=== PATIENT | female | born 1970 | race Caucasian/White ===

== ENCOUNTER → 2017-07-26 | Outpatient (CLI) | payer BC ==
[2017-07-26 16:16] LABS: Basophils % (A) 1 %; Eosinophils # (A) 0.1 k/uL (0-0.7); Eosinophils % (A) 1 %; HCT 40.6 % (34.0-46.0); HGB 13.1 gm/dL (11.4-16.0); Lymphocytes # (A) 2.3 k/uL (1.0-4.8); Lymphocytes % (A) 29 %; MCH 29.2 pg (25.0-35.0); MCHC 32.4 g/dL (31.0-37.0); MCV 90.3 fL (80.0-100.0); Mean Platelet Volume 7.7; Monocytes # (A) 0.5 k/uL (0-1.0); Monocytes % (A) 6 %; Neutrophils # (A) 4.8 k/uL (1.3-7.7); Neutrophils % (A) 62 %; Platelet Count 317 k/uL (150-450); RDW 13.5 % (11.5-15.5); WBC 7.8 k/uL (3.8-10.6)
== END | disposition home or self-care (01) ==
LOC: LABPAT 15:02
PROVIDERS: ATTEND Obstetrics & Gynecology
DX: Z01.812 Encounter for preprocedural laboratory examination (principal); N92.0 Excessive and frequent menstruation with regular cycle; N94.6 Dysmenorrhea, unspecified
CPT/HCPCS: 36415; 85025

== ENCOUNTER 2017-08-01 05:35 | Day surgery (SDC) | payer BC ==
[2017-07-27 10:22] VITALS: BMI 31.0
[~2017-08-01 05:35] MED LIST: DEXAMETHASONE SOD PHOSPHATE 10 MG/ML 1 ML VIAL IV ONE; LACTATED RINGERS 1,000 ML IV SCH; MIDAZOLAM 2 MG/2 ML VIAL IV PRN; ONDANSETRON 4 MG/2 ML VIAL IVP ONE; Pre Op ABX Message 1 EACH MISC MISCELLANE ONE; SCOPOLAMINE 1.5MG/72HR PATCH TRANSDERM ONE; fentaNYL (PF) 50 MCG/ML 2 ML AMP IV PRN
[2017-08-01] MEDS ORDERED: KETOROLAC 30 MG/ML 1 ML VIAL ONE (06:56)
[2017-08-01] MEDS ORDERED: PROPOFOL 10 MG/ML 20 ML VIAL IV ONE (06:56)
[2017-08-01] MEDS ORDERED: fentaNYL (PF) 50 MCG/ML 2 ML AMP ONE (06:56)
[2017-08-01] MEDS ORDERED: LIDOCAINE 1% INJ 10MG/ML (20 ML MDV) ONE (06:56)
[2017-08-01] MEDS ORDERED: MIDAZOLAM 2 MG/2 ML VIAL ONE (06:56)
--- NOTE | 2017-08-01 07:18 | P.OP ---
Date of Procedure: 08/01/17 Preoperative Diagnosis: Dysmenorrhea, menorrhagia Postoperative Diagnosis: Same Procedure(s) Performed: Hysteroscopy, NovaSure ablation Anesthesia: GETA Surgeon: Latonya Bobby Organic Search Lead #1: Stated None Estimated Blood Loss (ml): 3 IV fluids (ml): 200 Urine output (ml): 75 Pathology: none sent Condition: stable Disposition: PACU Description of Procedure: Patient is brought to the operating suite and placed in the dorsal lithotomy position. The cervix, vagina, perineum and periurethral areas are prepped and draped in the usual sterile fashion after general anesthetic is administered without difficulty. The appropriate timeout is performed to assure proper patient and procedural identification, urine hCG is negative. Examination under anesthesia reveals an anteverted uterus, multiparous cervix, grade 2 uterine prolapse, negative adnexa bilaterally. The bladder is drained for approximately 75 mL of clear yellow urine. Weighted speculum was placed into the vagina and the anterior lip of the cervix is grasped with a double-tooth tenaculum. Uterus sounds to a depth of 10.5 cm. The cervix is gently and systematically dilated using Hanks dilators. Hysteroscope was introduced and fluid is pushed into the cavity to distend the toussaint. The cavity is noted to contain a fair amount of proliferative-type appearing tissue, no obvious polyps fibroids or defects. Hysteroscope was removed. NovaSure wand is placed and seated. A uterine width of 4.3 cm, length of 6.5 cm is calibrated on the machine. The machine is properly enabled. For 63 seconds and a power of 154 W the procedure is carried out. When it is completed, the wand is reduced and removed. Hysteroscope was once again placed and the cavity is noted to be uniformly blanched. All sponge needle and enhancement counts are correct at the end of this procedure. Patient is brought back to recovery room in very good condition with stable vital signs including blood pressure of 115/71, pulse 67. Toradol is given prior to leaving the operative suite. Patient will follow-up with me in the office in 2 weeks.
[2017-08-01 07:40] VITALS: TEMP 97.3
[2017-08-01 07:41] VITALS: RESP 16
[2017-08-01 08:26] VITALS: BP 126/85; PULSE 74
== END 2017-08-01 08:55 | disposition home or self-care (01) ==
LOC: OR 05:35
PROVIDERS: ATTEND Obstetrics & Gynecology
DX: N94.6 Dysmenorrhea, unspecified (principal); N92.0 Excessive and frequent menstruation with regular cycle; N81.2 Incomplete uterovaginal prolapse
CPT/HCPCS: 81025; 58563; J2250; J1100; J2405; J2001; J3010; J1885; J2704

== ENCOUNTER → 2017-09-07 | Outpatient (CLI) | payer BC ==
--- NOTE | 2017-09-11 08:33 | MM ---
Reason for exam: screening (asymptomatic). Last mammogram was performed 2 years and 1 month ago. History: Family history of breast cancer in maternal aunt. Took hormonal contraceptives for 6 years. Physical Findings: A clinical breast exam by your physician is recommended on an annual basis and results should be correlated with mammographic findings. MG 3D Screening Mammo W/Cad Bilateral CC and MLO view(s) were taken. Prior study comparison: August 06, 2015, right breast MG 3d diag mammo w/cad RT. January 13, 2015, right breast MG 3d work up w/cad RT. The breast tissue is heterogeneously dense. This may lower the sensitivity of mammography. No significant changes when compared with prior studies. ASSESSMENT: Benign, BI-RAD 2 RECOMMENDATION: Routine screening mammogram of both breasts in 1 year.
== END | disposition home or self-care (01) ==
LOC: RADMAMWWP 11:00
PROVIDERS: ATTEND Obstetrics & Gynecology
DX: Z12.31 Encounter for screening mammogram for malignant neoplasm of breast (principal)
CPT/HCPCS: 77063; 77067

== ENCOUNTER → 2019-08-29 | Outpatient (CLI) | payer BC ==
--- NOTE | 2019-08-30 09:28 | MM ---
Reason for exam: screening (asymptomatic). Last mammogram was performed 2 years ago. History: Family history of breast cancer in maternal aunt. Took hormonal contraceptives for 6 years. Physical Findings: A clinical breast exam by your physician is recommended on an annual basis and results should be correlated with mammographic findings. MG 3D Screening Mammo W/Cad Bilateral CC and MLO view(s) were taken. Prior study comparison: September 07, 2017, bilateral MG 3d screening mammo w/cad. August 06, 2015, right breast MG 3d diag mammo w/cad RT. The breast tissue is heterogeneously dense. This may lower the sensitivity of mammography. Finding #1: There is a 11 mm equal density (isodense), obscured round mass in the upper inner quadrant of the right breast. Finding #2: There are typically benign calcifications. ASSESSMENT: Incomplete: need additional imaging evaluation, BI-RAD 0 RECOMMENDATION: Special view mammogram of the right breast. If lesion persists on supplemental views, image directed ultrasound is recommended. [facility] will attempt to contact patient to return for supplemental views and ultrasound if indicated.
== END | disposition home or self-care (01) ==
LOC: RADMAMWWP 09:38
PROVIDERS: ATTEND Obstetrics & Gynecology
DX: Z12.31 Encounter for screening mammogram for malignant neoplasm of breast (principal); Z80.3 Family history of malignant neoplasm of breast
CPT/HCPCS: 77063; 77067

== ENCOUNTER → 2019-09-23 | Outpatient (CLI) | payer BC ==
--- NOTE | 2019-09-23 14:34 | MM ---
Reason for exam: additional evaluation requested from abnormal screening. Last mammogram was performed 1 month ago. History: Family history of breast cancer in maternal aunt. Took hormonal contraceptives for 6 years. Physical Findings: Nurse Summary: 1 x 1cm nodule in the right breast at 12 o'clock (nurse ts). MG 3D Work Up W/Cad RT Spot compression CC, spot compression MLO, and LM view(s) were taken of the right breast. Prior study comparison: August 29, 2019, bilateral MG 3d screening mammo w/cad. September 07, 2017, bilateral MG 3d screening mammo w/cad. The breast tissue is heterogeneously dense. This may lower the sensitivity of mammography. 8mm circumscribed isodense mass 1 o'clock position. 12 o'clock palpable marker placed by the nurse. These results were verbally communicated with the patient and result sheet given to the patient on 09/23/19. ASSESSMENT: Incomplete: need additional imaging evaluation, BI-RAD 0 RECOMMENDATION: Ultrasound of the right breast. (11-3 o'clock)
--- NOTE | 2019-09-23 14:37 | USB ---
Reason for exam: additional evaluation requested from abnormal screening. History: Family history of breast cancer in maternal aunt. Took hormonal contraceptives for 6 years. US Breast Workup Limited RT Right limited breast ultrasound including focal area of concern, retroareolar and axilla demonstrates a 0.3 x 0.3 x 0.3cm cystic, benign lesion at 11 o'clock, a 0.6 x 0.5 x 0.6cm cystic, benign lesion at 1 o'clock corresponding to the palpable and probably corresponds to the mammographic finding, 6 month follow up mammogram recommended and a 0.5 x 0.3 x 0.4cm mixed lesion at 1 o'clock, possible small cyst cluster with posterior through transmission. Scanned 11-3 o'clock. These results were verbally communicated with the patient and result sheet given to the patient on 09/23/19. ASSESSMENT: Probably benign, BI-RAD 3 RECOMMENDATION: Follow-up diagnostic mammogram of the right breast in 6 months.
== END | disposition home or self-care (01) ==
LOC: RADMAMWWP 13:02
PROVIDERS: ATTEND Obstetrics & Gynecology
DX: R92.8 Other abnormal and inconclusive findings on diagnostic imaging of breast (principal)
CPT/HCPCS: 77061; 77065

== ENCOUNTER 2019-10-17 20:20 | Emergency (ER) | payer BC ==
[2019-10-17 20:26] VITALS: BP 136/86; PULSE 73; RESP 18; TEMP 98.2
[2019-10-17] MEDS ORDERED: AMOXIC-POT CLAV 875MG STARTER PACK 2 TAB BTL PO STA (20:50)
[2019-10-17] MEDS ORDERED: WATER FOR IRRIG, STERILE 1,000 ML BTL IRRIGATION ONE (20:51)
[2019-10-17] MEDS ORDERED: LIDOCAINE 1% INJ 10MG/ML (20 ML MDV) SQ ONE (20:52)
--- NOTE | 2019-10-17 21:09 | ED ---
General Adult HPI - General Chief complaint: Animal Bite Stated complaint: Dog Bite Time Seen by Provider: 10/17/19 20:26 Source: patient Mode of arrival: ambulatory Limitations: no limitations - History of Present Illness Initial comments: 49-year-old female presents to the emergency department [facility] with complaints of dog bite to the right hand. No range of motion limitations; minimal discomfort reported. She denies numbness or tingling to the fingers. Patient states the dog's immunizations are up-to-date and that she is fairly certain that her tetanus vaccine is up-to-date as well. Patient denies any headache, neck pain, back pain, chest pain, shortness of breath, dizziness, weakness, abdominal pain, nausea, vomiting, or difficulties with bowel movements or urination. - Related Data Previous Rx's Medication Instructions Recorded Amoxic-Pot Clav 875-125Mg 1 tab PO Q12HR #20 tablet 10/17/19 [Augmentin 875-125] Ibuprofen [Motrin] 600 mg PO Q8HR PRN #30 tab 10/17/19 Allergies Allergy/AdvReac Type Severity Reaction Status Date / Time No Known Allergies Allergy Verified 10/17/19 20:27 Review of Systems ROS Statement: Those systems with pertinent positive or pertinent negative responses have been documented in the HPI. ROS Other: All systems not noted in ROS Statement are negative. Past Medical History Past Medical History: No Reported History Additional Past Medical History / Comment(s): HEAVY MENSTRUAL PERIODS. History of Any Multi-Drug Resistant Organisms: None Reported Past Surgical History: No Surgical Hx Reported Additional Past Anesthesia/Blood Transfusion Reaction / Comment(s): NO PREVIOUS ANESTHESIA Past Psychological History: No Psychological Hx Reported Smoking Status: Never smoker Past Alcohol Use History: Rare Past Drug Use History: None Reported - Past Family History Mother Family Medical History: No Reported History General Exam Limitations: no limitations General appearance: alert, in no apparent distress, other (Well-nourished, well- developed female in no acute distress. Presenting vital signs include temperature 98.2, pulse 73, respirations 18, blood pressure 136/86, pulse ox 99% on room air) Respiratory exam: Present: normal lung sounds bilaterally. Absent: respiratory distress, wheezes, rales, rhonchi, stridor Cardiovascular Exam: Present: regular rate, normal rhythm, normal heart sounds. Absent: systolic murmur, diastolic murmur, rubs, gallop, clicks Extremities exam: Present: normal inspection, full ROM, normal capillary refill, other (Wounds noted to the digits on the right hand as documented under skin exam. Skin to the hand and arm are pink, warm, dry. Cap refills less than 3 seconds. Radial pulses 2+ and equal bilaterally. Patient has full range of motion noted to the fingers with and without resistance.). Absent: tenderness, pedal edema, joint swelling, calf tenderness Neurological exam: Present: alert, oriented X3, CN II-XII intact Psychiatric exam: Present: normal affect, normal mood Skin exam: Present: warm, dry Expanded Type of lesion: Present: other (2 small puncture wounds noted to the second digit of the right hand, ventral surface. Approximately 4 cm laceration noted to the third digit of the right hand, medial surface. Injuries sustained from a dog bite) Course Vital Signs 10/17/19 20:22 Temperature 98.2 F Pulse Rate 73 Respiratory 18 Rate Blood Pressure 136/86 O2 Sat by Pulse 99 Oximetry Procedures - Laceration Laceration #1 Consent Obtained: verbal consent Indication: laceration Site: hand (right hand, 3rd digit) Size (cm): 4 Description: linear Depth: simple, single layer Anesthetic Used: lidocaine 1% Anesthesia Technique: nerve block Amount (mls): 2 Pre-repair: irrigated extensively Type of Sutures: nylon Size of Sutures: 5-0 Number of Sutures: 2 (loosely approximated d/t dog bite) Technique: simple, interrupted Patient Tolerated Procedure: well, no complications Medical Decision Making - Medical Decision Making This is a 49-year-old female who presents to the emergency department for evaluation of injuries sustained in a dog bite this evening. 2 puncture wounds noted to the second digit on the right hand and 4 cm laceration noted to the medial surface of the third digit of the right hand. Bleeding controlled upon arrival; range of motion intact. Patient states she is certain the dog is up-to-date on immunizations. She reports that her last tetanus shot was less than 10 years ago and will verify this with her primary care provider upon follow-up. X-ray obtained of the right hand, no fracture seen. Digital block performed digit of right hand. Wound thoroughly cleansed and loosely approximated with 2 sutures. Patient tolerated procedure well. Bacitracin dressing applied along with finger splint. Wound care instructions directions reviewed at length with the patient. Instructed to follow-up with primary care doctor in 1-2 days for wound recheck. Sutures to be removed in 7 days. Patient instructed to return to the emergency Department with any fever, increased pain, or purulent drainage from the wound. 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 Patient verbalizes understanding and agrees with this plan. - Radiology Data Radiology results: report reviewed, image reviewed X-ray of the right hand obtained. Findings include intact metacarpals. No fracture nor dislocation. Normal joint spaces. Impression per Dr. Springer: no fracture seen. Disposition Clinical Impression: Dog bite of hand Disposition: HOME SELF-CARE Condition: Good Instructions (If sedation given, give patient instructions): Animal Bite (ED), Care For Your Stitches (ED) Additional Instructions: Keep wound clean and dry. Cleanse twice daily with warm water with antibacterial soap. Do not submerge your hand in water, showers are okay. Monitor for signs or symptoms infection including, but not limited to redness, swelling, drainage of pus, fever, or chills. Follow up with her primary care physician for recheck in 1-2 days. Return or see her primary care doctor to have the stitches removed in 7 days. Return for any other new, worsening, or concerning symptoms. Prescriptions: Amoxic-Pot Clav 875-125Mg [Augmentin 875-125] 1 tab PO Q12HR #20 tablet Ibuprofen [Motrin] 600 mg PO Q8HR PRN #30 tab PRN Reason: Pain Is patient prescribed a controlled substance at d/c from ED?: No Referrals: Alexandre Guillen MD [Primary Care Provider] - 1-2 days Time of Disposition: 22:08
--- NOTE | 2019-10-17 21:10 | XR ---
EXAMINATION TYPE: XR hand complete RT DATE OF EXAM: 10/17/2019 COMPARISON: NONE HISTORY: Laceration after dogbite TECHNIQUE: 3 views FINDINGS: Metacarpals are intact. I see no fracture nor dislocation. Joint spaces are normal. IMPRESSION: No fracture seen.
[2019-10-17] MEDS ORDERED: BACITRACIN OINT 1 EACH PACKET TOPICAL ONE (22:10)
== END 2019-10-17 22:15 | disposition home or self-care (01) ==
LOC: EC 20:20
DX: S61.411A Laceration without foreign body of right hand, initial encounter (principal)
CPT/HCPCS: 73130; 99283; 12002; J2001

== ENCOUNTER → 2020-03-25 | Outpatient (CLI) | payer BC ==
--- NOTE | 2020-03-25 10:06 | MM ---
Reason for exam: follow-up at short interval from prior study. Last mammogram was performed 6 months ago. History: Family history of breast cancer in maternal aunt at age 50. Took hormonal contraceptives for 6 years. Physical Findings: Nurse did not find any significant physical abnormalities on exam. MG 3D Diag Mammo W/Cad RT CC and MLO view(s) were taken of the right breast. Prior study comparison: September 23, 2019, right breast MG 3d work up w/cad RT. August 29, 2019, bilateral MG 3d screening mammo w/cad. The breast tissue is heterogeneously dense. This may lower the sensitivity of mammography. Persistent nodule right breast 1 o'clock. These results were verbally communicated with the patient and result sheet given to the patient on 03/25/20. ASSESSMENT: Incomplete: need additional imaging evaluation, BI-RAD 0 RECOMMENDATION: Ultrasound of the right breast.
--- NOTE | 2020-03-25 10:08 | USB ---
Reason for exam: additional evaluation requested from abnormal screening. History: Family history of breast cancer in maternal aunt at age 50. Took hormonal contraceptives for 6 years. US Breast Limited RT Right limited breast ultrasound including focal area of concern, retroareolar and axilla demonstrates a 0.6 x 0.4 x 0.3cm oval, cystic cluster at 12 o'clock, a 0.5 x 0.6 x 0.6cm oval, cystic lesion at 1 o'clock, a 0.4 x 0.4 x 0.3cm oval, cystic lesion at 1 o'clock, a 0.4 x 0.3 x 0.3cm oval, cystic lesion at 11 o'clock and a 1.6 x 1.6 x 0.9cm lymph node at the axilla. These results were verbally communicated with the patient and result sheet given to the patient on 03/25/20. ASSESSMENT: Benign, BI-RAD 2 RECOMMENDATION: Return to routine screening mammogram schedule for both breasts. Back on schedule.
== END | disposition home or self-care (01) ==
LOC: RADMAMWWP 08:56
PROVIDERS: ATTEND Obstetrics & Gynecology
DX: R92.8 Other abnormal and inconclusive findings on diagnostic imaging of breast (principal)
CPT/HCPCS: 77061; 77065

== ENCOUNTER → 2021-01-26 | Outpatient (CLI) | payer BC ==
--- NOTE | 2021-01-27 14:00 | MM ---
Reason for exam: screening (asymptomatic). Last mammogram was performed 10 months ago. History: Family history of breast cancer in maternal aunt at age 50. Took hormonal contraceptives for 6 years. Physical Findings: A clinical breast exam by your physician is recommended on an annual basis and results should be correlated with mammographic findings. MG 3D Screening Mammo W/Cad Bilateral CC and MLO view(s) were taken. Prior study comparison: March 25, 2020, right breast MG 3d diag mammo w/cad RT. September 23, 2019, right breast MG 3d work up w/cad RT. The breast tissue is heterogeneously dense. This may lower the sensitivity of mammography. Benign appearing bilateral calcifications. No significant changes when compared with prior studies. ASSESSMENT: Benign, BI-RAD 2 RECOMMENDATION: Routine screening mammogram of both breasts in 1 year.
== END | disposition home or self-care (01) ==
LOC: RADMAMWWP 16:46
PROVIDERS: ATTEND Obstetrics & Gynecology
DX: Z12.31 Encounter for screening mammogram for malignant neoplasm of breast (principal); Z80.3 Family history of malignant neoplasm of breast
CPT/HCPCS: 77063; 77067

== ENCOUNTER → 2022-12-20 | Outpatient (CLI) | payer BC ==
--- NOTE | 2022-12-21 20:10 | MM ---
Reason for Exam: Screening (asymptomatic). Last mammogram was performed 1 year(s) and 11 month(s) ago. Patient History: Menarche at age 14. First Full-Term at age 24. Perimenopausal. Patient used Hormonal Contraceptives for 6 years. Maternal aunt had breast cancer, age 50. Risk Values: Joi 5 year model risk: 0.9%. NCI Lifetime model risk: 8.0%. Prior Study Comparison: 09/23/2019 Right Diagnostic Mammogram, [facility]. 03/25/2020 Right Diagnostic Mammogram, [facility]. 01/26/2021 Bilateral Screening Mammogram, [facility]. Tissue Density: The breast tissue is heterogeneously dense. This may lower the sensitivity of mammography. Findings: Analyzed By CAD. Chronic nodularity medial right breast. There is no suspicious group of microcalcifications or new suspicious mass in either breast. Overall Assessment: Benign, BI-RAD 2 Management: Screening Mammogram of both breasts in 1 year. . Patient should continue monthly self-breast exams. A clinical breast exam by your physician is recommended on an annual basis. This exam should not preclude additional follow-up of suspicious palpable abnormalities. Note on Joi scores and lifetime risk: 1. A Joi score greater than 3% is considered moderate risk. If this is the case, consider specialist referral to assess eligibility for a risk reducing agent. 2. If overall lifetime risk for the development of breast cancer is 20% or higher, the patient may qualify for future screening with alternating mammogram and breast MRI. Electronically signed and approved by: Cuba Cohen M.D. Radiologist
== END | disposition home or self-care (01) ==
LOC: RADMAMWWP 13:15
PROVIDERS: ATTEND Obstetrics & Gynecology
DX: Z12.31 Encounter for screening mammogram for malignant neoplasm of breast (principal); Z80.3 Family history of malignant neoplasm of breast
CPT/HCPCS: 77063; 77067

== ENCOUNTER → 2023-12-22 | Outpatient (CLI) | payer BC ==
--- NOTE | 2023-12-24 15:47 | MM ---
Reason for Exam: Screening (asymptomatic). Last screening mammogram was performed 12 month(s) ago. Patient History: Menarche at age 14. First Full-Term at age 24. Perimenopausal. Patient used Hormonal Contraceptives for 6 years. Maternal aunt had breast cancer, age 50. Last menstrual period: 07/22/2023 Risk Values: Joi 5 year model risk: 0.9%. NCI Lifetime model risk: 7.9%. Prior Study Comparison: 03/25/2020 Right Diagnostic Mammogram, [facility]. 01/26/2021 Bilateral Screening Mammogram, [facility]. 12/20/2022 Bilateral MG 3D screening mammo w/cad, [facility]. Tissue Density: The breasts are heterogeneously dense, which may obscure small masses. Findings: Analyzed By CAD. The pattern is symmetrical. No significant interval change. Chronic nodularities within the right breast. No suspicious groups of microcalcifications, spiculated or lobular masses, architectural distortion or other secondary signs of malignancy are mammographically apparent. Overall Assessment: Benign, BI-RAD 2 Management: Screening Mammogram of both breasts in 1 year. A negative mammogram report should not preclude additional follow up of suspicious palpable abnormalities. Patient should continue monthly self breast exam. A clinical breast exam by your physician is recommended on an annual basis and results should be correlated with mammographic findings. Note on Joi scores and lifetime risk: 1. A Joi score greater than 3% is considered moderate risk. If this is the case, consider specialist referral to assess eligibility for a risk reducing agent. 2. If overall lifetime risk for the development of breast cancer is 20% or higher, the patient may qualify for future screening with alternating mammogram and breast MRI. [facility], , 12/24/2023 3:44 PM. Electronically signed and approved by: Tanvir Cruz D.O. Radiologis
== END | disposition home or self-care (01) ==
LOC: RADMAMWWP 13:03
PROVIDERS: ATTEND Pediatrics
DX: Z12.31 Encounter for screening mammogram for malignant neoplasm of breast (principal); Z80.3 Family history of malignant neoplasm of breast; R92.333 Mammographic heterogeneous density, bilateral breasts
CPT/HCPCS: 77063; 77067